=== PATIENT | male | born 1970 | race Two or more races ===

== ENCOUNTER → 2017-06-30 | Outpatient (CLI) | payer OTHER | END | disposition home or self-care (01) | LOC: HKI 15:29 | DX: M23.222 Derangement of posterior horn of medial meniscus due to old tear or injury, left knee (principal) | CPT/HCPCS: Z7500 ==

== ENCOUNTER → 2017-09-10 | Outpatient (CLI) | payer OTHER | END | disposition home or self-care (01) | LOC: HKI 15:46 | DX: S83.242A Other tear of medial meniscus, current injury, left knee, initial encounter (principal) | CPT/HCPCS: 73564; 73564-RT ==

== ENCOUNTER → 2017-11-10 | Outpatient (CLI) | payer OTHER | END | disposition home or self-care (01) | LOC: HKI 14:43 | DX: M17.0 Bilateral primary osteoarthritis of knee (principal); M23.222 Derangement of posterior horn of medial meniscus due to old tear or injury, left knee; M23.221 Derangement of posterior horn of medial meniscus due to old tear or injury, right knee | CPT/HCPCS: 73564; 73564-RT ==